=== PATIENT | male | born 1980 | race African-American/Black ===

== ENCOUNTER 2016-11-15 19:34 | Emergency (ER) | payer OTHER ==
[2016-11-15] MEDS ORDERED: TETRACAINE HCL 150 DROP BTL ONE (19:51)
--- NOTE | 2016-11-15 19:55 | ERNOTE ---
[facility] Date of Service: 11/15/16 Presenting Symptoms: eye pain Time Seen by Provider: 11/15/16 19:53 Source: patient, RN notes reviewed Exam Limitations: no limitations - Immun/Allergies/Home Medications Immunizations: IMMUNIZATION HX Immunizations Up to Date Yes History of Influenza Vaccine Yes Hx Pneumococcal Vaccination No Allergies/Adverse Reactions: Allergies Allergy/AdvReac Type Severity Reaction Status Date / Time acetaminophen [From Vicodin] Allergy Verified 11/15/16 19:48 hydrocodone [From Vicodin] Allergy Verified 11/15/16 19:48 oxycodone Allergy Verified 11/15/16 19:48 Home Medications: HOME MEDICATIONS NK [No Home Medication] 11/15/16 [Last Taken Unknown] - History of Present Illness Narrative: 35 y/o male ambulatory to the ED for eye pain. He began having pain in both eyes after being exposed to welding arc this afternoon at work. He works at [employer]. He reports wearing the appropriate face shield and eye protection, but the arc from a welder plastic behind him reflected off the glass inside his jones. He states that his tetanus vaccination is current. He has not taken anything for pain. He does wear glasses. ENT Location: Present: eye (R), eye (L) Prearrival Treatment: Present: flushing eys Prior Treament: Denies: recently seen, similar symptoms before Review of Systems - Review of Systems Constitutional: Absent: recent illness, fever, chills EYE: Present: eye pain, blurred vision, tearing. Absent: eye discharge ENT: Present: nose congestion, nasal drainage. Absent: ear pain, sore throat Respiratory: Absent: shortness of breath, cough Cardiology: Present: no symptoms reported Gastrointestinal/Abdominal: Present: no symptoms reported Genitourinary: Present: no symptoms reported Musculoskeletal: Absent: muscle pain, neck pain Skin: Absent: rash, lesions, lumps, change in color Neurological: Absent: headache, dizziness/light-headedness Endocrine: Present: no symptoms reported Hematologic/Lymphatic: Present: no symptoms reported Psych: Present: no symptoms reported - Patient's Past Medical History Patient History - Medical: Other Patient History - Cardiac/Respiratory: No pertinent hx Patient History - Cancer: No Hx of Cancer Patient History - Surgical Procedures: No surgical history Patient History - Other: None - Social History Living Situations: home Psych History: No pertinent hx Smoking Status: Current every day smoker Alcohol Use: none Drug Use: none - Immunizations Immunizations Up to Date: Yes Hx Pneumococcal Vaccination: No History of Influenza Vaccine: Yes Physical Exam - Physical Exam General Appearance: Present: wd/wn, alert, mild distress, anxious Eye Exam: PERRL: bilateral, EOMI: bilateral, Photophobia: bilateral Respiratory: Present: no respiratory distress, no accessory muscle use Neurological Exam: Present: alert, oriented, normal mood/affect, no motor/ sensory deficits Skin Exam: Present: normal color, warm/dry ED Progress - Vital Signs Patient's Vital Signs:: I have reviewed the patient's vital signs. Vital Signs: Vital Signs 11/15/16 19:41 Temperature 36.9 C Pulse Rate 74 Respiratory 18 Rate Blood Pressure 145/93 O2 Sat by Pulse 100 Oximetry - Progress/Reassessment Chief Complaint: Eye Injury/Trauma Progress:: Improved Procedures Eye Location: both eyes Tetracaine Drops Administered: Yes Cyclogel 2 Drops Administered: both eyes Eye - Cornea: Bilateral: examined w/fluorescein, nml inspection Antibiotic Ointment/Drps Admin: both eyes Complications: Pt hugo procedure well Departure Clinical Impression: Ultraviolet keratitis of both eyes - Departure Disposition: Home Follow Up Needed Condition: Stable Additional Instructions: See occupational health instruction sheet Follow up in occupational health as scheduled by your employer Referrals: Blanca Garcia [facility] OPERATOR [[facility]] -
[2016-11-15] MEDS ORDERED: ACETAMINOPHEN 500 MG TABLET PO ONE (20:11)
[2016-11-15] MEDS ORDERED: IBUPROFEN 600 MG TABLET PO ONE (20:11)
[2016-11-15] MEDS ORDERED: GENTAMICIN SULFATE 3.5 APPL TUBE EACHEYE ONE (20:11)
[2016-11-15] MEDS ORDERED: GENTAMICIN SULFATE 50 DROP BTL ONE (20:18)
[2016-11-15] MEDS ORDERED: IBUPROFEN 600 MG TABLET ONE (20:19)
[2016-11-15 20:30] VITALS: BP 126/97
[2016-11-15] MEDS ORDERED: GENTAMICIN SULFATE 3.5 APPL TUBE ONE (20:39)
== END 2016-11-15 20:39 | disposition home or self-care (01) ==
LOC: ER 19:34
DX: H16.133 Photokeratitis, bilateral (principal); F17.200 Nicotine dependence, unspecified, uncomplicated; W31.89XA Contact with other specified machinery, initial encounter; Y93.89 Activity, other specified; Y92.63 Factory as the place of occurrence of the external cause; Y99.0 Civilian activity done for income or pay

== ENCOUNTER 2016-12-02 01:07 | Emergency (ER) | payer OTHER ==
[2016-12-02] MEDS ORDERED: TETRACAINE HCL 150 DROP BTL ONE (01:14)
[2016-12-02] MEDS ORDERED: KETOROLAC TROMETHAMINE 60 MG/2 ML VIAL IM ONE ×2 (01:59→02:02)
--- NOTE | 2016-12-02 02:02 | ERNOTE ---
ENT HPI Presenting Symptoms: eye pain Time Seen by Provider: 12/02/16 01:47 Source: patient Exam Limitations: no limitations - Immun/Allergies/Home Medications Immunizations: IMMUNIZATION HX Immunizations Up to Date Yes History of Influenza Vaccine Yes Hx Pneumococcal Vaccination No Allergies/Adverse Reactions: Allergies Allergy/AdvReac Type Severity Reaction Status Date / Time acetaminophen [From Vicodin] Allergy Verified 11/15/16 19:48 hydrocodone [From Vicodin] Allergy Verified 11/15/16 19:48 oxycodone Allergy Verified 11/15/16 19:48 Home Medications: HOME MEDICATIONS Ketorolac Tromethamine/Pf [Acuvail 0.45% Ophth Solution] 1 drop EACHEYE BID #1 bottle 12/02/16 [Last Taken Unknown] - History of Present Illness Narrative: Pt complaining of bilateral eye pain. It feels like previous ultraviolet keratitis. He is not sure how his eyes were effected, as he believes he wore his eye protection all day. Severity: Present: moderate ENT Location: Present: eye (R), eye (L) Prearrival Treatment: Present: no prearrival treatment Modifying Factors - Improves: Reports: nothing Modifying Factors - Worsens: Reports: activity Associated Symptoms - ENT: Denies: fever Review of Systems - Review of Systems Constitutional: Absent: recent illness EYE: Present: see HPI, eye pain, tearing ENT: Present: no symptoms reported Respiratory: Present: no symptoms reported Cardiology: Present: no symptoms reported Gastrointestinal/Abdominal: Present: no symptoms reported Genitourinary: Present: no symptoms reported Musculoskeletal: Present: no symptoms reported Skin: Present: no symptoms reported Neurological: Present: no symptoms reported Endocrine: Present: no symptoms reported Hematologic/Lymphatic: Present: no symptoms reported Psych: Present: no symptoms reported - Patient's Past Medical History Patient History - Medical: Other Patient History - Cardiac/Respiratory: No pertinent hx Patient History - Cancer: No Hx of Cancer Patient History - Surgical Procedures: No surgical history Patient History - Other: None - Social History Living Situations: home Psych History: No pertinent hx Smoking Status: Current every day smoker Alcohol Use: none Drug Use: none - Immunizations Immunizations Up to Date: Yes Hx Pneumococcal Vaccination: No History of Influenza Vaccine: Yes Physical Exam - Physical Exam General Appearance: Present: wd/wn, alert, mild distress Head Exam: Present: normal inspection, no evidence of injury Eye Exam: PERRL: bilateral, EOMI: bilateral, Sclera injection: bilateral, Photophobia: bilateral Ears, Nose, Throat: Present: normal ENT inspection Neck: Present: normal inspection, nontender Respiratory: Present: no respiratory distress, no accessory muscle use Neurological Exam: Present: alert, oriented, no motor/sensory deficits Skin Exam: Present: normal color, warm/dry Lymphatic Exam: Present: no adenopathy ED Progress - Vital Signs Vital Signs: Vital Signs 12/02/16 01:12 Temperature 37.0 C Pulse Rate 96 Respiratory 18 Rate Blood Pressure 151/91 O2 Sat by Pulse 100 Oximetry - Progress/Reassessment Chief Complaint: Eye Injury/Trauma Progress:: Improved Progress Note-Subjective: 12/02/16 02:54 Pt given gentamycin opth drops and cyclopentolate drops and rx for ketorolac ophal. drops. 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 you may also use Ibuprofen 800mg 3 times a day or aleve 440 mg twice a day for 3-5 days, until healed. See an eye doctor if not improving in 2-3 days. Prescriptions: Ketorolac Tromethamine/Pf [Acuvail 0.45% Ophth Solution] 1 drop EACHEYE BID #1 bottle
[2016-12-02] MEDS ORDERED: CYCLOPENTOLATE HCL 20 DROP BTL EACHEYE ONE (02:07)
[2016-12-02] MEDS ORDERED: GENTAMICIN SULFATE 50 DROP BTL EACHEYE ONE (02:14)
[2016-12-02] MEDS ORDERED: CYCLOPENTOLATE HCL 20 DROP BTL ONE (02:21)
[2016-12-02] MEDS ORDERED: GENTAMICIN SULFATE 50 DROP BTL ONE (02:22)
[2016-12-02 02:38] VITALS: BP 132/78
== END 2016-12-02 02:46 ==
LOC: ER 01:07
DX: H16.8 Other keratitis (principal)